=== PATIENT | female | born 1985 | race Caucasian/White ===

== ENCOUNTER → 2025-05-09 | Emergency (ER) | payer MEDICAID ==
[~2025-05-09] VITALS: Ht 167.6 cm; Wt 81.8 kg
[~2025-05-09] MED LIST: POTASSIUM CHLORIDE 20 MEQ ER TABLET PO ONE
[2025-05-09 18:49] VITALS: TEMP 97.8
[2025-05-09 19:15] VITALS: BP 133/78; PULSE 87; RESP 17; O2SAT 99
[2025-05-09 19:45] LABS: PLATELET COUNT (AUTO) 343 K/uL (150-450); RED BLOOD CELL COUNT(AUTO) 5.16 MIL/uL (4.00-5.20); RED CELL DISTRIBUTION WIDTH 22.4 % (11.5-14.5); WHITE BLOOD COUNT (AUTO) 6.9 K/uL (4.5-11.0)
[2025-05-09 19:46] LABS: CALCIUM, TOTAL 8.7 mg/dL (8.8-10.5); CREATININE 1.02 mg/dL (0.60-1.30); GLOMERULAR FILTR. RATE CALC > 60 mL/min (>60); GLUCOSE,RANDOM 120 mg/dL (70-110); SODIUM SERUM 141 mmol/L (136-145); UREA NITROGEN, BLOOD 15 mg/dL (7-18)
[2025-05-09 20:01] LABS: RBC MORPHOLOGY COMMENT ABNORMAL RBC MORPH
[2025-05-09 20:02] LABS: PATHOLOGY REVIEW, DIFF YES
== END | disposition left against medical advice (07) ==
LOC: EMS 18:27
DX: M79.89 Other specified soft tissue disorders (principal); Z90.49 Acquired absence of other specified parts of digestive tract
CPT/HCPCS: 99283; 80048; 84703; 85025; 36415; G0480